=== PATIENT | male | born 1950 | race Caucasian/White ===

== ENCOUNTER 2024-02-02 15:04 | Outpatient (REF) | payer MEDICARE, SELFPAY ==
[2024-02-02 21:44] LABS: ALT 12 U/L (16-63); AST 11 U/L (15-37); Albumin 3.8 g/dL (3.4-5.0); Alkaline Phosphatase 106 U/L (46-116); Anion Gap 8.1 mmol/L (3-11); BUN 14 mg/dL (7-18); Bilirubin, Total 1.13 mg/dL (0.2-1.0); CO2 29.9 mmol/L (21.0-32.0); CREATININE 0.9 mg/dL (0.70-1.30); Calcium 9.1 mg/dL (8.5-10.1); Calculated LDL 20 mg/dL (<100); Chloride 108 mmol/L (98-107); Cholesterol 76 mg/dL (<200); Estimated GFR 90.18 (mL/min/1.73m2); Glucose 106 mg/dL (74-106); HDL Cholesterol 42 mg/dL (40-60); Potassium 4.5 mmol/L (3.5-5.1); Sodium 146 mmol/L (136-145); Total Protein 6.8 g/dL (6.4-8.2); Triglyceride 73 mg/dL (<150); Vitamin B12 223 pg/mL (193-986)
== END 2024-02-02 15:05 | disposition home or self-care (01) ==
LOC: NCHCN 15:04
PROVIDERS: PCP Nurse Practitioner Family; Visit Provider Nurse Practitioner Family
DX: E53.8 Deficiency of other specified B group vitamins (principal); I25.10 Atherosclerotic heart disease of native coronary artery without angina pectoris
CPT/HCPCS: 80053; 80061; 82607

== ENCOUNTER 2024-04-26 14:34 | Observation (INO) | payer MEDICARE, SELFPAY ==
[2024-04-26] VITALS (39 sets, daily range): BP systolic 114–193; BP diastolic 69–154; PULSE 54–264; RESP 15–36; TEMP 36.5–36.6; O2SAT 76–99
--- NOTE | 2024-04-26 14:45 | RT.EKG_ITS ---
APPROVED REPORT Exam: Resting ECG Reason for Exam: weakness/AMS Patient Location: E HR:57 bpm ECG Measurements Heart Rate 57 AXIS NV 194 P 54 QRSd 96 QRS 32 QT 413 T 73 QTc 402 Conclusion Sinus bradycardia...rate< 60 Normal axis/intervals No acute ST changes
--- NOTE | 2024-04-26 14:45 | DI.RAD_ITS ---
Exam(s) XR CHEST 2V PA LATERAL EXAM: XR CHEST 2V PA LATERAL CLINICAL HISTORY: weakness/AMS TECHNIQUE: 2D digital imaging was performed of the chest. Two images were obtained. PA and lateral views were obtained. COMPARISON: No exams were available for comparison FINDINGS: MEDIASTINUM: Normal. HEART: Normal. PULMONARY VASCULATURE: Normal. LUNGS: Clear. PLEURAL SPACE: No pleural effusion or pneumothorax. BONE:Within normal limits for the patient's age. OTHER FINDINGS:Normal. IMPRESSION: No acute pulmonary findings. DATA REPOSITORY: RADIATION DOSE DELIVERED:
--- NOTE | 2024-04-26 14:46 | W.ED.GENAD ---
Discharge Plan Disposition Patient Disposition: Admit to [facility] Condition: Stable Discharge Details Clinical Impression: Altered mental status, unspecified, Generalized weakness, Abnormal abdominal CT scan, Right renal mass Primary Care Provider: Breonna Sena ED Provider: Buzz Barrera Mendon Malachi and Milton Ya'hussein Prescriptions: No Action carbidopa-levodopa 25-100 mg tablet 2 tab PO TID amantadine HCl 100 mg capsule 100 mg PO BID atorvastatin 80 mg tablet 80 mg PO DAILY aspirin [Adult Low Dose Aspirin] 81 mg tablet,delayed release (DR/EC) 81 mg PO DAILY donepezil 10 mg tablet 10 mg PO DAILY tamsulosin 0.4 mg capsule 0.4 mg PO DAILY polyethylene glycol 3350 [Miralax] 17 gram/dose powder 8.5 g PO .QOD HPI General Mode of arrival: wheelchair. Date/Time Provider Initiated Documentation: 04/26/24 14:46. Limitations to Documentation: no limitations. Information obtained by: patient, family, RN notes reviewed and old records reviewed. HPI Narrative: Patient brought in from [facility] for evaluation of some increased confusion and weakness. He does have history of memory problems and Parkinson's disease. Over the last 1 to 2 days he has become increasingly weak and confused rather acutely. He does have a history of falls. There is been no report of fever, cough, chest pain, abdominal pain, vomiting. Patient himself denies any pain at this time. Related Data Home Medications ?Medication ?Instructions ?Recorded ?Confirmed amantadine HCl 100 mg capsule 100 mg PO BID 01/06/24 04/26/24 aspirin 81 mg tablet,delayed 81 mg PO DAILY 01/06/24 04/26/24 release (Adult Low Dose Aspirin) atorvastatin 80 mg tablet 80 mg PO DAILY 01/06/24 04/26/24 carbidopa 25 mg-levodopa 100 mg 2 tab PO TID 01/06/24 04/26/24 tablet donepezil 10 mg tablet 10 mg PO DAILY 01/06/24 04/26/24 tamsulosin 0.4 mg capsule 0.4 mg PO DAILY 01/06/24 04/26/24 polyethylene glycol 3350 17 8.5 g PO .QOD 04/12/24 04/26/24 gram/dose oral powder (Miralax) Allergies Allergy/AdvReac Type Severity Reaction Status Date / Time No Known Allergies Allergy Verified 04/26/24 14:46 General Stated Complaint: AMS/LOC IRENE: 3 Review of Systems Narrative: Per HPI Exam Narrative Exam Narrative: Const: Elderly male in NAD. VS per triage. HEENT: NC/AT. Normal facial exam. Neck: Supple. Trachea midline. Lungs: Normal respiratory effort. Lungs are clear. Cor: RRR without murmur. Good radial pulses. GI: Soft/ND/NT. Neuro: Awake and alert with some mild confusion. Cranial nerves II - XII grossly intact. No gross motor or sensory deficit. BUE tremor. Ext: No C/C/E. Course Vital Signs Vital signs: Vital Signs Temperature 97.7 F 04/26/24 14:41 Pulse 62 04/26/24 14:41 Respiratory Rate 16 04/26/24 14:41 Blood Pressure 155/84 H 04/26/24 14:41 Pulse Oximetry 97 04/26/24 14:41 Temperature 97.7 F 04/26/24 14:41 Temperature Source Tympanic 04/26/24 14:41 Pulse 62 04/26/24 14:41 Respiratory Rate 16 04/26/24 14:41 Blood Pressure 155/84 H 04/26/24 14:41 Pulse Oximetry 97 04/26/24 14:41 Oxygen Delivery Method Room Air 04/26/24 14:41 Oxygen Flow Rate 0 04/26/24 14:41 Pain Level 0 04/26/24 14:41 Medical Decision Making Patient presenting to ED from [facility] for evaluation of increased confusion and weakness over the last couple of days. He does have cognitive problems as well as Parkinson's. He currently denies any pain or problems. Family who is here with him reports a noticeable increase in confusion and weakness acutely. No report of any other real symptoms other than maybe runny nose. His vital signs look good. His exam is unremarkable and neurologically he is nonfocal. Does appear mildly confused to me. Given history of frequent falls will obtain CT head. Will proceed with metabolic infectious workup as well including Fluvid, chest x-ray, urinalysis, laboratory studies, EKG. 16:45 - Patient's workup has been unrevealing so far. White count and hemoglobin are normal. Chemistries unremarkable, bicarb only slightly elevated at 33. Kidney function is normal. Total bilirubin is 1.8 up from a previous of 1.3 but other LFTs are normal. His troponin is normal. Nasal swab is negative. Urinalysis negative for infection. CT head per radiology with no acute changes and no bleed. Chest x-ray per my read as well as radiology negative for acute process. Given the relatively acute change in mental status and weakness with no other findings other than increasing bilirubin and report of decreased appetite and food intake will plan CT of abdomen pelvis. If negative will plan discharge back to [place] and to follow-up with PCP and/or palliative care. 18:30 - CT of the abdomen with findings as below. I have discussed these findings with patient and family. Given acute change in mental status and weakness and that [facility] is assisted living, I have concern regarding discharge back. Discussed consideration for observation admission with family who are in agreement. Discussed ED visit and findings with hospitalist, Dr. Good. Agree with observation admission for abdominal ultrasound and potentially abdominal MRI tomorrow. Medical Records Medical records reviewed: Yes I reviewed the patient's medical records. Medical records narrative: palliative care notes Imaging Data Radiologic Study: Attestation: I personally reviewed and interpreted this imaging study as follows: Imaging: X-Ray My impression: CXR with no acute process Radiologic Study #2: Imaging: CT Scan (Head) Radiologist's impression: IMPRESSION: No definite acute intracranial process. If if there is continued clinical concern, an MRI of the brain should be obtained for further evaluation Radiologic Study #3: Imaging: CT Scan (abd/pelivs) Radiologist's impression: IMPRESSION: 1. Cholelithiasis. No biliary ductal dilatation. There may be mild pericholecystic fluid. Gallbladder ultrasound may be obtained for further evaluation. 2. 6.8 x 6.5 x 6.6 cm complex right renal mass suspicious for renal neoplasm such as a renal cell carcinoma. 3. Hypodense rounded nodular area adjacent to the stomach and left adrenal gland. This may arise from the adrenal gland and represent lesion such as an adenoma. This also may arise from the stomach and represent a diverticulum. This can be further evaluated with an MRI of the abdomen. 4. Question of mild wall thickening seen in loops of small bowel in the left abdomen. This may be due to underdistention, enteritis or possible neoplastic process. 5. Enlarged prostate gland. Lab Data Lab results reviewed: Yes I reviewed the patient's lab results. Lab results narrative: see MDM ECG Data Attestation: I personally reviewed and interpreted this ECG (s) as follows: Prior ECG tracings: not available for review Interpretation: see MDM/EKG PFS All Active Problems (Updated 04/26/24 @ 18:30 by Buzz Barrera MD) Right renal mass (Acute) Abnormal abdominal CT scan (Acute) Generalized weakness (Acute) Altered mental status, unspecified (Acute) Falls frequently (Acute) Full code status (Acute) Palliative care patient (Acute) ACP (advance care planning) (Acute) Medical History Constipation Memory deficit Hypertension Parkinsons disease Cardiomyopathy, ischemic ASCVD (arteriosclerotic cardiovascular disease) Social History Smoking/Tobacco Use Status: Never Smoking risk assessment performed?: Yes Alcohol Intake: never Drug use: Never Do you feel safe at home: Yes Do you feel safe in your relationship?: Yes
[2024-04-26 15:03] LABS: Abs Immature Grans 0.03 10^3/uL (0.0-0.06); Absolute Basophil Count 0.02 10^3/uL (0.0-0.2); Absolute Eosinophil Count 0.18 10^3/uL (0.0-0.7); Absolute Monocyte Count 0.53 10^3/uL (0.1-0.8); Absolute Neutrophil Count 4.92 10^3/uL (1.2-6.7); Basophils % 0.3 %; Eosinophils % 2.7 %; HCT 48.8 % (40.0-50.0); Immature Grans % 0.4 %; Lymphocytes % 16.2 %; MCH 29.7 pg (27.0-33.0); MCHC 32.8 % (32.0-36.0); MCV 91 fL (80-95); MPV 10.3 fL (8.0-11.0); Monocytes % 7.8 %; Neutrophils % 72.6 %; Platelet Count 153 10^3/uL (130-400); RBC 5.39 10^6/uL (4.36-5.78); RDW 14.9 % (11.8-14.1); RDW-SD 49.7 fL; WBC 6.78 10^3/uL (4.4-10.8)
[2024-04-26 15:26] LABS: ALT 8 U/L (16-63); AST 7 U/L (15-37); Albumin 3.9 g/dL (3.4-5.0); Alkaline Phosphatase 112 U/L (46-116); Anion Gap 3.9 mmol/L (3-11); BUN 15 mg/dL (7-18); Bilirubin, Total 1.78 mg/dL (0.2-1.0); CO2 33.1 mmol/L (21.0-32.0); Chloride 107 mmol/L (98-107); Estimated GFR 79.47 (mL/min/1.73m2); Glucose 99 mg/dL (74-106); Magnesium 2.4 mg/dL (1.8-2.4); Potassium 4.1 mmol/L (3.5-5.1); Sodium 144 mmol/L (136-145); Troponin I 8 ng/L (<or=76)
[2024-04-26 15:46] LABS: Bilirubin Negative (Negative); Blood Negative (Negative); Clarity Clear (Clear); Glucose Negative (Negative); Ketones 15 mg/dL (Negative); Leukocyte Esterase Negative (Negative); Nitrite Negative (Negative); Specific Gravity >= 1.030 (1.005-1.025); pH 6.5 (5-8)
--- NOTE | 2024-04-26 16:25 | DI.CT_ITS ---
Exam(s) CT HEAD WO EXAM: CT HEAD WO CLINICAL HISTORY: AMS. TECHNIQUE: Imaging Protocol: Axial computed tomography images with coronal and sagittal reformatted images were created and reviewed COMPARISON: No exams were available for comparison FINDINGS: Ventricles and Extra axial spaces: Normal in size and morphology for the patient's age. Hemorrhage: None. Cerebral parenchyma: No mass effect is identified. No evidence of an acute territorial infarct. The re are subtle areas of decreased attenuation in the white matter which may reflect small vessel ische mora disease. Midline shift: None. Brainstem/Cerebellum: Normal. Calvarium: Normal. Visualized Paranasal sinuses/Mastoids: Clear. Soft Tissues: Unremarkable. IMPRESSION: No definite acute intracranial process. If if there is continued clinical concern, an MRI of the bra in should be obtained for further evaluation. RADIATION DOSE DELIVERED: 901.47mGy.cm Total DLP DATA REPOSITORY: All CT scans at this facility are submitted to the National Radiology Data Registry (NRDR) Dose Index Registry (DIR) with the [employer] (ACR). RADIATION OPTIMIZATION: All CT scans at this facility use at least one of these dose optimization te chniques: automated exposure control; mA and/or kV adjustment per patient size (includes targeted exa ms where dose is matched to clinical indication); or iterative reconstruction.
[2024-04-26 16:27] LABS: Influenza A PCR Negative (Negative); Influenza B PCR Negative (Negative); RSV PCR Negative (Negative)
[2024-04-26 16:28] LABS: COVID-19 PCR Negative (Negative); Source NASOPHARYNX
--- NOTE | 2024-04-26 16:45 | DI.CT_ITS ---
Exam(s) CT ABDOMEN PELVIS W EXAM: CT ABDOMEN PELVIS W CLINICAL HISTORY: AMS with elevated bilirubin, decreased appetite TECHNIQUE: Imaging Protocol: Axial computed tomography images with coronal and sagittal reformatted images were created and reviewed. CONTRAST MATERIAL: Intravenous: Omnipaque 350 Contrast volume:75 mL Oral: No COMPARISON: No exams were available for comparison FINDINGS: ABDOMEN: Lung Bases: No acute abnormality. Liver: Normal density. No measurable mass. Portal, Superior Mesenteric, and Splenic Veins: Unremarkable. Gallbladder and Biliary Tract: There is a gallstone present. (Series 10, image 60). No biliary duct al dilatation. There is a question of mild fluid around the gallbladder. Pancreas: Normal density, no abnormal calcifications or inflammatory process. Spleen: Normal. Adrenals: There is a left adrenal nodule. It measures 1.6 cm. Kidneys: Normal size, contour and axis. No radiodense stones or obstructive uropathy. There are simpl e cysts seen in the left kidney. No follow-up is recommended. There is a heterogeneously enhancing mass in the inferior pole of the right kidney measuring 6.8 x 6.5 x 6.4 cm. The findings are most co ncerning for a primary renal neoplasm such as a renal cell carcinoma. Abdominal Aorta: Abdominal portion non-dilated. Atherosclerotic calcification is present. There is e ctasia of the proximal right internal iliac artery. Bowel: There is colonic diverticulosis without evidence of acute diverticulitis. The stomach is inco mpletely distended limiting evaluation. There is a short section of wall thickening in loops of smal l bowel in the left abdomen (series 10 image 99). There is no evidence of bowel obstruction. No oth er findings of bowel wall thickening are seen. Peritoneal Cavity: No ascites, collection or mesenteric inflammatory response. No free air. Lymph Nodes: Within normal limits. Bones: Within normal limits for the patient's age. Soft Tissues: Unremarkable. PELVIS: Bladder: Symmetric distention, no gross wall thickening. Reproductive Organs: There is enlarged prostate gland. Lymph Nodes: Within normal limits. Bones: Within normal limits for the patient's age. IMPRESSION: 1. Cholelithiasis. No biliary ductal dilatation. There may be mild pericholecystic fluid. Gallblad edilberto ultrasound may be obtained for further evaluation. 2. 6.8 x 6.5 x 6.6 cm complex right renal mass suspicious for renal neoplasm such as a renal cell car cinoma. 3. Hypodense rounded nodular area adjacent to the stomach and left adrenal gland. This may arise fro m the adrenal gland and represent lesion such as an adenoma. This also may arise from the stomach an d represent a diverticulum. This can be further evaluated with an MRI of the abdomen. 4. Question of mild wall thickening seen in loops of small bowel in the left abdomen. This may be du e to underdistention, enteritis or possible neoplastic process. 5. Enlarged prostate gland. RADIATION DOSE DELIVERED: 392.1mGy.cm Total DLP DATA REPOSITORY: All CT scans at this facility are submitted to the National Radiology Data Registry (NRDR) Dose Index Registry (DIR) with the [employer] (ACR). RADIATION OPTIMIZATION: All CT scans at this facility use at least one of these dose optimization te chniques: automated exposure control; mA and/or kV adjustment per patient size (includes targeted exa ms where dose is matched to clinical indication); or iterative reconstruction.
[2024-04-26] MEDS: Normal Saline - Diluent 50 ML VIAL IJ (17:23)
[2024-04-26] MEDS: Omnipaque 350 MG/ML 100 ML BTL IJ (17:23)
--- NOTE | 2024-04-26 19:44 | HPE_ITS ---
Date of service: 04/26/24 Time of Service: 19:44 Assessment and Plan Assessment and plan (1) Altered mental status, unspecified: Status: Acute Assessment and plan: Acute mental status changes evolving over the past 2 days with an unclear etiology. His mental status makes a full history assessment difficult. Clues on evaluation for infection in ED including mildly elevated/uptrending hyperbilirubinemia and cholelithiasis with possible pericholecystic fluid, I agree he deserves observation with repeat bili and abdominal ultrasound to further evaluate this. May also be non specific infection that has not declared itself Exam and CT not suggestive of cerebrovascular cause. Will observe clinically Get orthostatic BPs and PT to address the lighteadness and falls. Amantadine could makes these symptoms worse but it is not new per the record. (2) Right renal mass: Status: Acute Assessment and plan: This is new, concerning for RCC. Will need biopsy as outpatient. MRI recommended for adrenal mass will also help characterize this better. (3) Left adrenal mass: Status: Acute Assessment and plan: Adrenal vs stomach. It is unclear if this is related to acute presentation, but given uncertaintly will get the MRI as recommended. (4) ASCVD (arteriosclerotic cardiovascular disease): Assessment and plan: Continue aspirin and high intensity statin. He denies symptoms, EKG/trop reassuring (5) B12 deficiency: Assessment and plan: Was low normal in January, will repeat, though I doubt related to acute MS changes. (6) Parkinsons disease: Assessment and plan: Given history of progression and associated dementia and autonomic dysfuntion, this could be multisystem atropy or similar. He has f/u with neurology. For now will continue his outpatient medications for parkinsonism and cognitive impairment. (7) Constipation: Assessment and plan: Continue regular QOD polyethylene glycol. (8) BPH with obstruction/lower urinary tract symptoms: Assessment and plan: No signs of obstruction on CT. Continue tamsulosin. (9) DVT prophylaxis: Status: Acute Assessment and plan: enoxaparin History of Present Illness History of Present Illness Chief Complaint: confusion, weakness Narrative: 73 yo M with Parkinsons with associated cognitive impairment and autonomic dysfunction, CAD, and BPH who presented after multiple minor falls and some increased confusion for the past 2 days at [facility]. He states he has been feeling more dizzy with standing and weak. He states has fallen 4-5 times while up with his walker, which is more than usual. He denies getting hurt or hitting his head when he has fallen. He denies focal weakness or numbness or vertigo associated with these falls. He denies any pain including headache, chest pain, or abdominal pain. He has not had any changes to bowel or bladder function. He states he has been taking his medication regularly and is not aware of any recent changes (none documented in PCP record). Per caregiver at [facility], he has been more confused than normal, which is an acute change management lead the past 2 days. Note from PCP states Aneta called earlier on the day of admission decribing confusion and weakness x 2 days. He couldn't do much with. He couldn't hold his fork normally to eat last night and didn't eat. Not able to follow commands, which is abnormal. They described him slipping out of chair but no overt falls and no head trauma. No fever or other complaints. Review of Systems All systems reviewed & are unremarkable except as noted in HPI and below Constitutional Constitutional: Denies chills, Reports frequent falls and Reports poor appetite Eyes Eyes: Denies change in vision ENT Ears, Nose, Mouth, and Throat: Reports as per HPI, Denies nasal congestion, Denies nasal discharge and Denies sore throat Cardiovascular Cardiovascular: Denies dyspnea Respiratory Respiratory: Denies hemoptysis, Reports excessive phlegm production (not much cough but he does bring up phlegm.) and Denies dyspnea Comments: COPD on PCP records, but no inhaler use Gastrointestinal Gastrointestinal: Denies melena, Denies hematochezia, Reports constipation (takes miralax, last BM 2-3 days ago), Denies loose stools and Denies nausea Comments: no pale/leigh stool or other color change Genitourinary Genitourinary: Denies hematuria and Reports urinary incontinence (per caregivers) Neurologic Neurologic: Reports as per HPI, Denies abnormal speech, Reports frequent falls, Denies convulsions and Reports tremor(s) (chronic) Psychiatric Psychiatric: Denies mood swings [facility] All Active Problems (Updated 04/26/24 @ 19:56 by Rajendra Mehta) DVT prophylaxis (Acute) Left adrenal mass (Acute) Right renal mass (Acute) Abnormal abdominal CT scan (Acute) Generalized weakness (Acute) Altered mental status, unspecified (Acute) Falls frequently (Acute) Full code status (Acute) Palliative care patient (Acute) ACP (advance care planning) (Acute) Medical History (Updated 04/26/24 @ 19:56 by Rajendra Mehta) BPH with obstruction/lower urinary tract symptoms B12 deficiency Constipation Memory deficit Hypertension Parkinsons disease Cardiomyopathy, ischemic ASCVD (arteriosclerotic cardiovascular disease) Surgical History (Updated 04/26/24 @ 19:49 by Rajendra Mehta) S/P vasectomy Social History (Updated 04/26/24 @ 19:52 by Rajendra Mehta) Smoking/Tobacco Use Status: Never Smoking risk assessment performed?: Yes Alcohol Intake: never Drug use: Never Do you feel safe at home: Yes Do you feel safe in your relationship?: Yes Additional Social history: 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 Now lives at [facility], but ex- [place] supportive/DPOA. Daughter in [facility], Daughter [facility]. Meds Allergies and Home Medications Allergies Allergy/AdvReac Type Severity Reaction Status Date / Time No Known Allergies Allergy Verified 04/26/24 14:46 Home Medications ?Medication ?Instructions ?Recorded ?Confirmed ?Type amantadine HCl 100 mg capsule 100 mg PO BID 01/06/24 04/26/24 History aspirin 81 mg tablet,delayed 81 mg PO DAILY 01/06/24 04/26/24 History release (Adult Low Dose Aspirin) atorvastatin 80 mg tablet 80 mg PO DAILY 01/06/24 04/26/24 History carbidopa 25 mg-levodopa 100 mg 2 tab PO TID 01/06/24 04/26/24 History tablet donepezil 10 mg tablet 10 mg PO DAILY 01/06/24 04/26/24 History tamsulosin 0.4 mg capsule 0.4 mg PO DAILY 01/06/24 04/26/24 History polyethylene glycol 3350 17 8.5 g PO .QOD 04/12/24 04/26/24 History gram/dose oral powder (Miralax) Exam Narrative Exam Narrative: GEN: Alert and oriented to self and month/year, not to place ([place]). pleasant and cooperative, he does follow commands with exam, gives very vague history. No acute distress at rest. HEENT: Head atraumatic. Conjunctiva clear, no icterus. PEERL, EOMI. no rhinorrhea. MMM, OP benign. Neck is supple with no masses or lymphadenopathy, trachea midline LUNGS: CTAB with normal effort CV: RRR with no murmurs, gallops, or rubs. ABD: active bowel sounds, soft, nontender and nondistended. No masses. Negative murphies EXT: no cyanosis, clubbing, or edema MSK: No joint redness or swelling NEURO: CN 2-12 grossly intact. 5/5 symmetric strength of 4 extremities, nl sensation to light touch. severe resting tremor in arms and legs. Symmetric reflexes. Normal speech and coordination. SKIN: No open wounds, few pustules and macular redness, papules on face, chest (rosacea appearing) PSYCH: normal mood and affect. No obvious hallucinations Results Imaging Chest x-ray: report reviewed and image reviewed Abdomen CT scan report/results: report reviewed (see below) CT scan - pelvis: report reviewed EKG: report reviewed and image reviewed (Sinus armand 57, nl axis, intervals. No acute ischemic changes.) Imaging Studies: CT Abd/pelvis: 1. Cholelithiasis. No biliary ductal dilatation. There may be mild pericholecystic fluid. Gallbladder ultrasound may be obtained for further evaluation. 2. 6.8 x 6.5 x 6.6 cm complex right renal mass suspicious for renal neoplasm such as a renal cell carcinoma. 3. Hypodense rounded nodular area adjacent to the stomach and left adrenal gland. This may arise from the adrenal gland and represent lesion such as an adenoma. This also may arise from the stomach and represent a diverticulum. This can be further evaluated with an MRI of the abdomen. 4. Question of mild wall thickening seen in loops of small bowel in the left abdomen. This may be due to underdistention, enteritis or possible neoplastic process. 5. Enlarged prostate gland. CT head w/o: No definite acute intracranial process. If if there is continued clinical concern, an MRI of the brain should be obtained for further evaluation. Labs 04/26/24 14:55 04/26/24 14:55 Labs: Laboratory Results - last 24 hr 04/26/24 04/26/24 04/26/24 14:55 15:35 15:44 WBC 6.78 RBC 5.39 Hgb 16.0 Hct 48.8 MCV 91 MCH 29.7 MCHC 32.8 RDW 14.9 H Plt Count 153 MPV 10.3 Immature Gran % 0.4 Neutrophils % 72.6 Lymphocytes % 16.2 Monocytes % 7.8 Eosinophils % 2.7 Basophils % 0.3 Nucleated RBC % 0.0 Absolute Neutrophils 4.92 Absolute Lymphocytes 1.10 L Absolute Monocytes 0.53 Absolute Eosinophils 0.18 Absolute Basophils 0.02 Sodium 144 Potassium 4.1 Chloride 107 Carbon Dioxide 33.1 H Anion Gap 3.9 BUN 15 Creatinine 1.0 Est GFR (CKD-EPI 2020) 79.47 Glucose 99 Calcium 9.0 Magnesium 2.4 Total Bilirubin 1.78 H AST 7 L ALT 8 L Alkaline Phosphatase 112 Troponin I 8 Total Protein 7.0 Albumin 3.9 Urine Color Yellow Urine Clarity Clear Urine pH 6.5 Ur Specific Mcallister >= 1.030 H Urine Protein Negative Urine Ketones 15 H Urine Blood Negative Urine Nitrite Negative Urine Bilirubin Negative Urine Urobilinogen 2.0 H Ur Leukocyte Esterase Negative Urine Glucose Negative COVID-19 Source NASOPHARYNX SARS-CoV-2 (PCR) Negative Influenza Type A (PCR) Negative Influenza Type B (PCR) Negative RSV (PCR) Negative Last Vital Signs Temp 36.5 C 04/26/24 14:41 Pulse 64 04/26/24 15:32 Resp 25 H 04/26/24 15:32 BP 154/96 H 04/26/24 15:30 Pulse Ox 94 04/26/24 15:32 Time Spent Time spent with Patient: >75 minutes Time was spent: preparing to see the patient(eg.review tests), obtaining and/or reviewing separately otained hiistory, ordering medications,tests, procedures, referring, communicating with other health pharmacy customer care specialist, indepentently interpreting results, counseling the patient and care coordination
[2024-04-26] MEDS: Carbidopa 25/Levodopa 100 TAB PO (22:47)
[2024-04-26] MEDS: Normal Saline Flush 10 ML SYR IVP (22:53)
[2024-04-27 03:21] VITALS: BP 131/79; PULSE 60; RESP 18; TEMP 36.4; O2SAT 98
--- NOTE | 2024-04-27 06:51 | W.PC.ACHO ---
Registration Status: Primary Language: Preferred Language: ED Information & Data Chief Complaint AMS/LOC 04/26/24 14:46 Triage Note yesterday pt not acting 04/26/24 14:41 himself, increased weakness, sweaty, nose running, incontinence, sada concerned for UTI. Medical / Surgical History (Last Updated 04/26/24 @ 19:48 by Rajendra Mehta) BPH with obstruction/lower urinary tract symptoms B12 deficiency Constipation Memory deficit Hypertension Parkinsons disease Cardiomyopathy, ischemic ASCVD (arteriosclerotic cardiovascular disease) (Last Updated 04/26/24 @ 19:49 by Rajendra Mehta) S/P vasectomy Most Recent Vital Signs Temperature 36.4 C L 04/27/24 03:21 Temperature Source Tympanic 04/27/24 03:21 Pulse 60 04/27/24 03:21 Pulse Rhythm Irregular 04/26/24 22:21 Pulse 65 04/26/24 18:20 Respiratory Rate 18 04/27/24 03:21 Respiratory Effort Normal, Non-Labored 04/26/24 22:21 Respiratory Depth Normal 04/26/24 22:21 Respiratory Pattern Normal 04/26/24 22:21 Blood Pressure 131/79 04/27/24 03:21 Blood Pressure Mean 101 04/26/24 20:16 Pulse Oximetry 98 04/27/24 03:21 Oxygen Delivery Method Room Air 04/27/24 03:21 Oxygen Flow Rate 0 04/27/24 03:21 Pain Level 0 04/27/24 03:21 Allergies No Known Allergies Allergy (Verified 04/26/24 14:46) Active Medications Generic Name Dose Route Start Last Admin Trade Name Freq PRN Reason Stop Dose Admin Amantadine HCl 100 mg 04/26/24 20:00 04/26/24 23:57 Amantadine 100 Mg Cap PO 100 mg BID MALICK Administration Carbidopa/Levodopa 2 tab 04/26/24 20:00 04/26/24 22:47 Carbidopa 25/Levodopa 100 Tab PO 2 tab TID MALICK Administration Iohexol 100 ml 04/26/24 17:30 04/26/24 17:23 Omnipaque 350 Mg/Ml 100 Ml Btl IJ 05/26/24 23:59 100 ml DIRECTED MAILCK Administration Sodium Chloride 0 ml 04/26/24 20:00 04/26/24 22:53 Normal Saline Flush 10 Ml Syr IVP 10 ml BID MALICK Administration Sodium Chloride 50 ml 04/26/24 17:30 04/26/24 17:23 Normal Saline - Diluent 50 Ml Vial IJ 50 ml .FOR DI USE MALICK Administration IV IV Catheter Type [Right Saline Lock Antecubital] IV Catheter Gauge [Right 18 Antecubital] Diagnostics 04/27/24 04/26/24 04/26/24 Range/Units 05:35 15:44 15:35 WBC Pending (4.4-10.8) 10^3/uL RBC Pending (4.36-5.78) 10^6/uL Hgb Pending (13.5-17.5) g/dL Hct Pending (40.0-50.0) % MCV Pending (80-95) fL MCH Pending (27.0-33.0) pg MCHC Pending (32.0-36.0) % RDW Pending (11.8-14.1) % Plt Count Pending (130-400) 10^3/uL MPV Pending (8.0-11.0) fL Immature Gran % Pending % Neutrophils % Pending % Lymphocytes % Pending % Monocytes % Pending % Eosinophils % Pending % Basophils % Pending % Nucleated RBC % (0.0-0.3) % Absolute Neutrophils Pending (1.2-6.7) 10^3/uL Absolute Lymphocytes Pending (1.2-3.4) 10^3/uL Absolute Monocytes Pending (0.1-0.8) 10^3/uL Absolute Eosinophils Pending (0.0-0.7) 10^3/uL Absolute Basophils Pending (0.0-0.2) 10^3/uL Sodium (136-145) mmol/L Potassium (3.5-5.1) mmol/L Chloride (98-107) mmol/L Carbon Dioxide (21.0-32.0) mmol/L Anion Gap (3-11) mmol/L BUN (7-18) mg/dL Creatinine (0.70-1.30) mg/dL Est GFR (CKD-EPI 2020) (mL/min/1.73m2) Glucose (74-106) mg/dL Calcium (8.5-10.1) mg/dL Magnesium Pending (1.8-2.4) mg/dL Total Bilirubin Pending (0.2-1.0) mg/dL Conjugated Bilirubin Pending AST Pending (15-37) U/L ALT Pending (16-63) U/L Alkaline Phosphatase Pending (46-116) U/L Troponin I (<or=76) ng/L Total Protein Pending (6.4-8.2) g/dL Albumin Pending (3.4-5.0) g/dL Vitamin B12 Pending Urine Color Yellow (Yellow) Urine Clarity Clear (Clear) Urine pH 6.5 (5-8) Ur Specific [place] >= 1.030 H (1.005-1.025) Urine Protein Negative (Neg-Trace) mg/dL Urine Ketones 15 H (Negative) mg/dL Urine Blood Negative (Negative) Urine Nitrite Negative (Negative) Urine Bilirubin Negative (Negative) Urine Urobilinogen 2.0 H (Up to 0.2) mg/dL Ur Leukocyte Esterase Negative (Negative) Urine Glucose Negative (Negative) mg/dL COVID-19 Source NASOPHARYNX SARS-CoV-2 (PCR) Negative (Negative) Influenza Type A (PCR) Negative (Negative) Influenza Type B (PCR) Negative (Negative) RSV (PCR) Negative (Negative) 04/26/24 Range/Units 14:55 WBC 6.78 (4.4-10.8) 10^3/uL RBC 5.39 (4.36-5.78) 10^6/uL Hgb 16.0 (13.5-17.5) g/dL Hct 48.8 (40.0-50.0) % MCV 91 (80-95) fL MCH 29.7 (27.0-33.0) pg MCHC 32.8 (32.0-36.0) % RDW 14.9 H (11.8-14.1) % Plt Count 153 (130-400) 10^3/uL MPV 10.3 (8.0-11.0) fL Immature Gran % 0.4 % Neutrophils % 72.6 % Lymphocytes % 16.2 % Monocytes % 7.8 % Eosinophils % 2.7 % Basophils % 0.3 % Nucleated RBC % 0.0 (0.0-0.3) % Absolute Neutrophils 4.92 (1.2-6.7) 10^3/uL Absolute Lymphocytes 1.10 L (1.2-3.4) 10^3/uL Absolute Monocytes 0.53 (0.1-0.8) 10^3/uL Absolute Eosinophils 0.18 (0.0-0.7) 10^3/uL Absolute Basophils 0.02 (0.0-0.2) 10^3/uL Sodium 144 (136-145) mmol/L Potassium 4.1 (3.5-5.1) mmol/L Chloride 107 (98-107) mmol/L Carbon Dioxide 33.1 H (21.0-32.0) mmol/L Anion Gap 3.9 (3-11) mmol/L BUN 15 (7-18) mg/dL Creatinine 1.0 (0.70-1.30) mg/dL Est GFR (CKD-EPI 2020) 79.47 (mL/min/1.73m2) Glucose 99 (74-106) mg/dL Calcium 9.0 (8.5-10.1) mg/dL Magnesium 2.4 (1.8-2.4) mg/dL Total Bilirubin 1.78 H (0.2-1.0) mg/dL Conjugated Bilirubin AST 7 L (15-37) U/L ALT 8 L (16-63) U/L Alkaline Phosphatase 112 (46-116) U/L Troponin I 8 (<or=76) ng/L Total Protein 7.0 (6.4-8.2) g/dL Albumin 3.9 (3.4-5.0) g/dL Vitamin B12 Urine Color (Yellow) Urine Clarity (Clear) Urine pH (5-8) Ur Specific [place] (1.005-1.025) Urine Protein (Neg-Trace) mg/dL Urine Ketones (Negative) mg/dL Urine Blood (Negative) Urine Nitrite (Negative) Urine Bilirubin (Negative) Urine Urobilinogen (Up to 0.2) mg/dL Ur Leukocyte Esterase (Negative) Urine Glucose (Negative) mg/dL COVID-19 Source SARS-CoV-2 (PCR) (Negative) Influenza Type A (PCR) (Negative) Influenza Type B (PCR) (Negative) RSV (PCR) (Negative) Intake and Output - 24 Hour Total 04/26/24 14:34 thru 04/27/24 03:21 Intake Total 10 Output Total 120 Balance -110 Weight 73.482 kg Intake: IV 10 Output: Urine 120 Other: Urine Color Yellow Urine Appearance Clear Comment tried the commode but was incontinent Falls Risk Assessment History of Falls Previous History 04/26/24 22:21 Contributing Factors Confusion 04/26/24 22:21 Ambulatory Aids Uses ambulatory device 04/26/24 22:21 Tubes/Lines With any additional score 04/26/24 22:21 Gait Evaluation No gait disturbance 04/26/24 22:21 Cognition Cognitive impairment 04/26/24 22:21 Fall Total Score 68 04/26/24 22:21 Level of Risk High Risk 04/26/24 22:21 Problems (Last Updated 04/26/24 @ 19:48 by Rajendra Mehta) DVT prophylaxis (Acute) Left adrenal mass (Acute) Right renal mass (Acute) Altered mental status, unspecified (Acute) v v v v v v v v v Sending and/or Receiving Nurses: Please use comment section below to note any information pertinent to the patient hand-off not included above. Information / Comments: Report received from: received report from Fede Genao, [facility] was brought in w/ c/o increased weakness, AMS, questionable UTI. nothing remarkable was discoverable after labs and diagnostics done in the ER. Patient has underlying impaired cognition and parkinsons. patient has a fairly significant baseline tremor r/t to his parkinsons. VSS.
--- NOTE | 2024-04-27 07:00 | DI.US_ITS ---
Exam(s) US ABDOMEN EXAM: US ABDOMEN CLINICAL HISTORY: AMS, weak, elevated bili and fluid around GB on CT TECHNIQUE: Ultrasound abdomen performed using standard protocol. COMPARISON: CT CT ABDOMEN PELVIS W from 04/26/2024 FINDINGS: The exam is limited by bowel gas. LIVER: Somewhat difficult to visualize due to bowel gas and assess the of the skull scanning through the ribs. Normal size and echogenicity. No focal liver lesions are seen. GALLBLADDER: No evidence of cholelithiasis. Borderline wall thickening 3 millimeters. No pericholecy stic fluid identified. The gallbladder is not abnormally distended. KIRAN'S SIGN: Negative. BILIARY SYSTEM: No intrahepatic or extrahepatic biliary ductal dilation. KIDNEYS: Kidneys are symmetric in size. No evidence of renal calculi. No evidence of hydronephrosis. Some large mass noted lower pole right kidney 6.8 cm maximal dimension. Simple cysts left kidney. PANCREAS: Not well visualized. SPLEEN: Not enlarged. ABDOMINAL AORTA AND IVC: Visualized portions normal caliber. ASCITES: None seen. IMPRESSION: No evidence of cholelithiasis or pericholecystic fluid. Borderline gallbladder wall thickening. No abnormal gallbladder distention or biliary dilatation. A large suspicious mass is again demonstrated at the lower pole of the right kidney. DATA REPOSITORY:
--- NOTE | 2024-04-27 07:00 | DI.MRI_ITS ---
Exam(s) MR ABDOMEN WO/W EXAM: MR ABDOMEN WO/W CLINICAL HISTORY: R renal mass, nodule left adrenal vs stomach TECHNIQUE: Multiplanar multisequence MRI of the Abdomen was performed. CONTRAST MATERIAL: IV Contrast: 15 mL of Dotarem contrast administered. COMPARISON: CT CT ABDOMEN PELVIS W from 04/26/2024 US US ABDOMEN from 04/27/2024 FINDINGS: Lung bases: Unremarkable. Liver: Unremarkable. Pancreas: Unremarkable. Gallbladder and Bile Ducts: No evidence of gallstones. There is a trace amount of pericholecystic fl uid. No biliary dilatation. No abnormal gallbladder distention or visible wall thickening. Adrenals: 17 millimeter circumscribed nodule at the superior left adrenal gland, adjacent to the post erior fundus of stomach. Due to its small size and motion artifact is not well seen on multiple sequ ences. The right adrenal is unremarkable. Kidneys: 6.6 centimeter suspicious heterogeneous mass at the lower pole of the right kidney. 2 simpl e cysts are noted at the anterior upper pole of the left kidney. Few other tiny bilateral renal cyst s are present. Spleen: Unremarkable. Aorta: Unremarkable. Soft Tissues: Unremarkable. Bone: Unremarkable. Lymph Nodes: Unremarkable. Stomach and bowel: Unremarkable. Peritoneal cavity: Unremarkable. No evidence of ascites. IMPRESSION: A suspicious masses again noted at the lower pole of the right kidney. Left adrenal lesion is be characterized on the current exam due to small size, motion and large slice thickness. No evidence of gallstones. Trace amount of pericholecystic fluid. DATA REPOSITORY:
[2024-04-27 07:06] LABS: Abs Immature Grans 0.02 10^3/uL (0.0-0.06); Absolute Basophil Count 0.02 10^3/uL (0.0-0.2); Absolute Lymphocyte Count 1.32 10^3/uL (1.2-3.4); Absolute Monocyte Count 0.51 10^3/uL (0.1-0.8); Basophils % 0.3 %; Eosinophils % 2.9 %; HCT 53.2 % (40.0-50.0); HGB 17.2 g/dL (13.5-17.5); Immature Grans % 0.3 %; Lymphocytes % 18.9 %; MCH 29.2 pg (27.0-33.0); MCHC 32.3 % (32.0-36.0); MCV 90 fL (80-95); MPV 10.1 fL (8.0-11.0); Monocytes % 7.3 %; Neutrophils % 70.3 %; Platelet Count 155 10^3/uL (130-400); RDW 14.6 % (11.8-14.1); RDW-SD 49.1 fL; WBC 6.97 10^3/uL (4.4-10.8)
[2024-04-27 07:22] LABS: ALT 10 U/L (16-63); AST 8 U/L (15-37); Albumin 4.1 g/dL (3.4-5.0); Alkaline Phosphatase 112 U/L (46-116); Bilirubin, Direct 0.3 mg/dL (0.0-0.2); Bilirubin, Total 1.79 mg/dL (0.2-1.0); Total Protein 7.2 g/dL (6.4-8.2)
[2024-04-27 07:29] LABS: Magnesium 2.5 mg/dL (1.8-2.4)
[2024-04-27 07:44] VITALS: BP 141/94; PULSE 55; RESP 18; TEMP 37; O2SAT 97
[2024-04-27 07:59] LABS: Vitamin B12 475 pg/mL (193-986)
[2024-04-27] MEDS: Polyethylene Glycol 3350 17 GM PACKET 8.5 GM PO (09:08)
[2024-04-27] MEDS: Tamsulosin 0.4 MG CAPCR PO (09:09)
[2024-04-27] MEDS: Aspirin E.C. 81 MG TABEC PO (09:09)
[2024-04-27] MEDS: Carbidopa 25/Levodopa 100 TAB PO (09:09)
[2024-04-27] MEDS: Atorvastatin 40 MG TAB 80 MG PO (09:09)
[2024-04-27] MEDS: Enoxaparin 40 MG/0.4 ML SYR SC (09:09)
[2024-04-27] MEDS: Donepezil 5 MG TAB 10 MG PO (09:09)
[2024-04-27] MEDS: Normal Saline Flush 10 ML SYR IVP ×2 (09:10)
--- NOTE | 2024-04-27 09:31 | PDOC.CMIN ---
Date of service: 04/27/24 Time of Service: 09:32 Care Management Initial Assmt Initial Assessment Reason for Hospitalization: weakness Functional Status/Living Situation Town of Residence: [facility] Resides with: Other ([facility], assisted living facility) Medications Medication Management: No Issues/Barriers identified Advance Directives Advance Directives: Do you have an Advance Directive: AD On File at [facility]: N 02/02/24 14:43 Date Asked 04/26/24 04/26/24 14:38 AD Date Reviewed COLST On File at [facility] Yes 04/27/24 04:26 COLST Date Scanned 02/03/24 04/27/24 04:26 Code Status Resuscitation Status Full Code Portal Pt does not currently have a portal and education provided: Yes Insurance Coverage/Financial Issues Insurance: Medicare [facility] Medicare Supplement Care Team Visit Care Team Role Provider Type Breonna Sena Primary Care Provider ADV PRACTICE REGISTERED NURSE InPatient Norm Garrett Other Providers OTHER Buzz Barrera MD Emergency Provider [facility] STAFF PHYSICIAN Rajendra Mehta Admit Provider [facility] STAFF PHYSICIAN Attending Provider Discharge Potential Discharge Needs: PCP F/U Appt Anticipated Barriers to Discharge: Medical Status Patient/Family Education Needs: Review discharge instructions, discuss Ask Me Three Transportation: Other (to be determined by disposition) Plan: Anticipate Hieu will transfer back to the [facility], where he lives, when medically cleared. He will follow up with his PCP and plan of care and will transport via RCT vs private vehicle. CM will follow and continue to support discharge planning needs. Social Determinants of Health Screening Social Determinants of Health last assessed: 04/27/24 Will the Patient Participate in the Screening?: Unable to obtain Do you worry about having a steady place to live?: no Problems where you live: no known problems In the past 12 months, have you had to go without electric, gas, oil or water in your home?: no Have you or anyone in your house had to go without enough food to eat?: no Has lack of transportation kept you from medical appointments or from doing things needed for daily living?: no Has anyone in your life made you feel unsafe or unsupported?: no How hard is it for you to pay for the very basics like food, housing, medical care, and heating? Would you say it is:: Not hard at all Do you want help finding or keeping work or a job?: I do not need or want help If for any reason you need help with day-to-day activities such as bathing, preparing meals, shopping, managing finances, etc., do you get the help you need?: I don?t need any help How often do you feel lonely or isolated from those around you?: Never Do you speak a language other than [place] at home?: No Does the patient want assistance with any of the above?: No PFSH All Active Problems (Updated 04/26/24 @ 19:56 by Rajendra Mehta) DVT prophylaxis (Acute) Left adrenal mass (Acute) Right renal mass (Acute) Abnormal abdominal CT scan (Acute) Generalized weakness (Acute) Altered mental status, unspecified (Acute) Falls frequently (Acute) Full code status (Acute) Palliative care patient (Acute) ACP (advance care planning) (Acute) Medical History (Updated 04/26/24 @ 19:56 by Rajendra Mehta) BPH with obstruction/lower urinary tract symptoms B12 deficiency Constipation Memory deficit Hypertension Parkinsons disease Cardiomyopathy, ischemic ASCVD (arteriosclerotic cardiovascular disease) Surgical History (Updated 04/26/24 @ 19:49 by Rajendra Mehta) S/P vasectomy Social History (Updated 04/26/24 @ 19:52 by Rajendra Mehta) Smoking/Tobacco Use Status: Never Smoking risk assessment performed?: Yes Alcohol Intake: never Drug use: Never Housing: assisted living facility Do you feel safe at home: Yes Do you feel safe in your relationship?: Yes Additional Social history: 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, but ex- Maria Victoria nancy/DPOA. Daughter in [facility], Daughter Rubina [facility].
--- NOTE | 2024-04-27 09:42 | IN_ITS ---
PT Notes Visit Reasons: AMS, Weakness, Renal Mass Physical Therapy Inpatient Initial Evaluation Date: 04/27/2024 Referring Doctor: Rajendra Mehta MD PT Orders: PT CONSULT: Safety Consult for D/C. 73 yo with parkinson's, falls admitted acute weakness/AMS Precautions: Fall. Standard. Activity as tolerated. Patient Profile/Admitting Diagnosis: Patient is a [id number]-old male resident of [place] in admitted due to increased confusion and weakness patient is admitted for management of altered mental status, right renal mass, left adrenal mass, ASCVD, B12 deficiency, Parkinson's disease, constipation, BP headache gets to see Dr. Garg is leaving right now yeah yeah I heard I just read 5 minutes ago family has been dressed and ready to go Thursday not happy there they are fine they just want to get them H. PMHX: All Active Problems (Updated 04/26/24 @ 19:56 by Rajendra Mehta) DVT prophylaxis (Acute) Left adrenal mass (Acute) Right renal mass (Acute) Abnormal abdominal CT scan (Acute) Generalized weakness (Acute) Altered mental status, unspecified (Acute) Falls frequently (Acute) Full code status (Acute) Palliative care patient (Acute) ACP (advance care planning) (Acute) Medical History (Updated 04/26/24 @ 19:56 by Rajendra Mehta) BPH with obstruction/lower urinary tract symptoms B12 deficiency Constipation Memory deficit Hypertension Parkinsons disease Cardiomyopathy, ischemic ASCVD (arteriosclerotic cardiovascular disease) Surgical History (Updated 04/26/24 @ 19:49 by Rajendra Mehta) S/P vasectomy Social History/Home Situation: [facility] resident. Uses 4[employer] with modified [employer] Equipment Owned/DME: 4[employer] Subjective: Firm that he could walk to testing downstairs but with explanation about 2 [id number] tests, he agreed to sitting on transport chair to be brought down by Nurse Yusuf. Patient was agreeable to be moved out of bed and walked for a short distance from edge of bed to transport chair at the door using his walker. No report of pain, headache, lightheadedness throughout. Was agreeable to working some more with PT after return from testing Objective: General Observation: Resting in bed. Mildly anxious. Mental Status: Alert and oriented as to person and purpose. Able to pay attentio n, focus, and respond appropriately. Pain: None reported Vital Signs: Closely monitored by nursing staff ROM: Right Upper Extremity: Shoulder Flexion allows up to about 100 deg. Shoulder abduction allows up to about 90 deg. Elbow flexion WFL. Wrist flexion WFL. Functional opening and closing of hand WFL. Left Upper Extremity: Shoulder Flexion allows up to about 100 deg. Shoulder abduction allows up to about 90 deg. Elbow flexion WFL. Wrist flexion WFL. Functional opening and closing of hand WFL. Right Lower Extremity: Hip flexion WFL. Hip abduction WFL. Knee flexion WFL. Ankle dorsiflexion WFL. Ankle plantarflexion WFL. Left Lower Extremity: Hip flexion WFL. Hip abduction WFL. Knee flexion WFL. Ankle dorsiflexion WFL. Ankle plantarflexion WFL. Strength: Right Upper Extremity: Shoulder flexors 3-/5. Shoulder abductors 3-/5. Elbow flexors 4-/5. Elbow extensors 4-/5. Community Development Officer strong. Left Upper Extremity: Shoulder flexors 3-/5. Shoulder abductors 3-/5. Elbow flexors 4-/5. Elbow extensors 4-/5. Community Development Officer strong. Right Lower Extremity: Hip flexors 4/5. Hip abductors 4/5. Knee flexors 5/5. Knee extensors 5/5. Ankle dorsiflexors 4/5. Ankle plantarflexors 4/5. Left Lower Extremity: Hip flexors 4/5. Hip abductors 4/5. Knee flexors 5/5. Knee extensors 5/5. Ankle dorsiflexors 4/5. Ankle plantarflexors 4/5. Bed Mobility/Transfers: Minimal cueing provided for use of B hands as needed for support, movement sequence, AD management, and posture to reduce fall risk and minimize pain report Supine to sit minimal assist Sit to stand minimal assist with FWW Stand to sit minimal assist with FWW Bed to transport chair minimal assist with FWW Transport chair to bed minimal assist with FWW Gait: Patient was able to cover about 12 feet using front-wheeled walker with minimal assist and minimal verbal cueing for AD management and for safe turning as well as backing up onto transport chair. After testing, patient was able to complete about 75 feet of hallway ambulation using FWW with minimal assist. B LE rigidly moves forward, trunk and hips mildly flexed. Tremors and limb incoordination making whole movement unsteady needing physical assistance from PT. Directional turns were precarious--slow and discontinuous. decreased trunk rotation. Balance: Static Sitting: Normal Dynamic Sitting: Good Static Standing: Fair Dynamic Standing: Fair Special Tests: Mobility Limitations Standardized Measure [facility] AM-PAC 6 clicks Basic Mobility Inpatient Short Form: Raw Score: 18 CMS Score: 47% deficit 4-stage balance test: Feet together 3 seconds Semi-tandem 2 seconds Full tandem deferred One-legged stance deferred Rapid alternating movement: Impaired Informed Consent/Education: Patient was instructed in purpose of PT consult and plan of care. Agreeable to proceed with established PT POC to achieve personal goals. Assessment: Patient presents with clinical signs and symptoms consistent with current/admitting diagnoses that have resulted to mobility limitations, gait instability, generalized weakness, and overall ADL decline as demonstrated by the following impairment level findings: 1. Decreased strength to B UE/LE major muscle groups 2. Impaired standing balance, see 4-stage balance test 3. Impaired activity tolerance 4. Resting tremors in B UE and LE with B UE>>B LE 5. Incoordination of B UE /LE Impairments are contributing to the following functional limitations: 1. Decline in bed mobility skills 2. Decline in transfer skills 3. Difficulty with ambulation without assistive device and physical assistance, needs wheelchair follow for safety 4. Increased completion time for mobility ADL performance 5. Increased risk for falls 6. Difficulty with managing steps alone safely Patient is assessed as a 65922 moderate complexity based on the following: History: 73-year-old male with past medical history as indicated above Examination: Demonstrable impairment in strength, balance, and mobility level with underlying impairments and functional limitations as exhibited above as well as deficit score of 47% utilizing the [facility] Mobility Inpatient Short Form Presentation: Evolving Decision Makin moderate complexity Goals: Goals X1 week 1. Supine-Sit independent 2. Sit-Supine independent 3. Sit-Stand independent 4. Stand-Sit independent with FWW 5. Bed-Chair independent with FWW 6. Chair-Bed independent with FWW 7. Independent gait on level surface with use of FWW for at least 150 feet without report of pain nor dyspnea 8. Good static and dynamic standing balance/tolerance Plan of Care/Treatment Plan: 1-2x/day, 7 days/week x 1 week. Plan of care has been reviewed with the SPRING UP SUPERVISOR providing the service under Physical Therapy direction. Initiate Physical Therapy intervention for pain management as needed, strengthening, bed mobility, transfers, gait, stairs, balance training, and use of assistive device. DISCHARGE RECOMMENDATIONS: [] Home with no services [] [] Home with services [specify] [] Home with outpatient PT [] [] SNF for continued rehabilitation [] [] Custodial Care [] [] SNF versus LTC based on ability to participate and progress [] [X] Short-term SNF vs PT based on progress towards goals with ongoing acute PT intevention TREATMENT CODE/TIME: 70758 x 20 minutes for 1 unit, 04218 x 18 minutes for 1 unit (9:42-9:58 and 11:26-11:48). Thank you for the opportunity to participate in the care of this patient. Leonie Lobato PT, DPT, CLT [facility] [place], [place]
[2024-04-27] MEDS: Gadoterate meglumine 20 ML VIAL 15 ML IVP (10:58)
[2024-04-27] MEDS: Normal Saline - Diluent 50 ML VIAL IJ (10:59)
[2024-04-27 12:05] VITALS: BP 101/75; PULSE 72; RESP 19; TEMP 36.6; O2SAT 97
--- NOTE | 2024-04-27 12:49 | DSE_ITS ---
Date of service: 04/27/24 Time of Service: 12:49 DS: Diagnosis Discharge Diagnosis (1) Altered mental status, unspecified: Status: Acute (2) Right renal mass: Status: Acute (3) Left adrenal mass: Status: Acute (4) ASCVD (arteriosclerotic cardiovascular disease): (5) B12 deficiency: (6) Parkinsons disease: (7) Constipation: (8) BPH with obstruction/lower urinary tract symptoms: (9) DVT prophylaxis: Status: Acute Discharge Plan Disposition Patient Disposition: Home Condition: Good Discharge Details Reason For Visit: AMS, Weakness, Renal Mass Admit Date/Time: 04/26/24 18:48 Admit Provider: Rajendra Mehta Attending Provider: Rajendra Mehta Primary Care Provider: Breonna Sena [facility] Course Hospital Course: Patient initially presented with concerns for change in mental status. Workup in the emergency department was largely unremarkable with the exception of some questionable gallbladder thickening and surrounding fluid, however this was not seen on follow-up ultrasound. Additionally, the patient did have elevated bilirubin it remained stable during hospitalization and appears to have been elevated in the past. However, on abdominal CT and MRI patient was noted to have right lower pole renal mass suspicious for malignancy for which it will be recommended he have outpatient oncology follow-up. However, as for the patients mental status, it appears that he waxes and wanes, and has been having some mental and functional status decline for some time now. Given that the patient is back at this baseline mental status it is determined that he can be discharged back to [facility] and will have referral sent to Oncology for follow-up of his right renal mass. Home Meds and New Rx's Prescriptions: Continued carbidopa-levodopa 25-100 mg tablet 2 tab PO TID amantadine HCl 100 mg capsule 100 mg PO BID atorvastatin 80 mg tablet 80 mg PO DAILY aspirin [Adult Low Dose Aspirin] 81 mg tablet,delayed release (DR/EC) 81 mg PO DAILY donepezil 10 mg tablet 10 mg PO DAILY tamsulosin 0.4 mg capsule 0.4 mg PO DAILY polyethylene glycol 3350 [Miralax] 17 gram/dose powder 8.5 g PO .QOD Discharge Instructions Referrals: HEMATOLOGY/ONC,[facility] [OTHER] - (right lower pole renal mass) Activity:: Activity as Tolerated Equipment/Supplies:: No Equipment Needed Diet:: As Tolerated Discharge Orders Discharge Orders: Discharge Order (Routine); Ordered 04/27/24 Ordered By: Peter Galdamez DS: Summary Time Spent with Patient providing and/or coordinating discharge services: Greater than 30 minutes Status at Discharge Functional status at discharge: independent ambulation Overall status at discharge: patient is back to baseline Mental Status: mental status grossly normal Speech and Movement: speech and movement normal Mood: congruent mood Affect: normal affect Quality:SDOH Health Related Social Needs: No Data to Display Exam Narrative Exam Narrative: older gentleman laygin in bed in no acute distress, awake, alert, oriented to person only, heart RRR, lungs CTAB, abdomen soft, non-tender, [id number], severe resting tremors noted in bilateral upper and lower extremities Psych Mental Status: mental status grossly normal Speech and Movement: speech and movement normal Mood: congruent mood Affect: normal affect DS: Data Vitals/I&O Vitals and I&O: Vital Signs Temperature 97.9 F 04/27/24 12:05 Temperature Source Temporal Artery Scan 04/27/24 12:05 Pulse 72 04/27/24 12:05 Pulse Rhythm Irregular 04/26/24 22:21 Pulse 65 04/26/24 18:20 Respiratory Rate 19 04/27/24 12:05 Respiratory Effort Normal, Non-Labored 04/26/24 22:21 Respiratory Depth Normal 04/26/24 22:21 Respiratory Pattern Normal 04/26/24 22:21 Blood Pressure 101/75 04/27/24 12:05 Blood Pressure Mean 101 04/26/24 20:16 Pulse Oximetry 97 04/27/24 12:05 Oxygen Delivery Method Room Air 04/27/24 07:44 Oxygen Flow Rate 0 04/27/24 07:44 Pain Level 0 04/27/24 03:21 Intake & Output 04/26/24 04/27/24 04/27/24 17:59 05:59 17:59 Intake Total Output Total 120 / 120 100 / 100 Balance -110 / -110 -100 / -100 Weight 190 lb 162 lb Intake: IV Output: Urine 120 / 120 100 / 100 Other: Urine Color Yellow Yellow Urine Appearance Clear Clear Urine Odor None Comment tried the commode but was incontinent Data Completed and Pending Labs on day of discharge: Labs from last 24 hours 04/27/24 04/26/24 04/26/24 06:40 15:44 15:35 WBC 6.97 RBC 5.90 H Hgb 17.2 Hct 53.2 H MCV 90 MCH 29.2 MCHC 32.3 RDW 14.6 H Plt Count 155 MPV 10.1 Immature Gran % 0.3 Neutrophils % 70.3 Lymphocytes % 18.9 Monocytes % 7.3 Eosinophils % 2.9 Basophils % 0.3 Nucleated RBC % 0.0 Absolute Neutrophils 4.90 Absolute Lymphocytes 1.32 Absolute Monocytes 0.51 Absolute Eosinophils 0.20 Absolute Basophils 0.02 Sodium Potassium Chloride Carbon Dioxide Anion Gap BUN Creatinine Est GFR (CKD-EPI 2020) Glucose Calcium Magnesium 2.5 H Total Bilirubin 1.79 H Conjugated Bilirubin 0.3 H AST 8 L ALT 10 L Alkaline Phosphatase 112 Troponin I Total Protein 7.2 Albumin 4.1 Vitamin B12 475 Urine Color Yellow Urine Clarity Clear Urine pH 6.5 Ur Specific Butler >= 1.030 H Urine Protein Negative Urine Ketones 15 H Urine Blood Negative Urine Nitrite Negative Urine Bilirubin Negative Urine Urobilinogen 2.0 H Ur Leukocyte Esterase Negative Urine Glucose Negative COVID-19 Source NASOPHARYNX SARS-CoV-2 (PCR) Negative Influenza Type A (PCR) Negative Influenza Type B (PCR) Negative RSV (PCR) Negative 04/26/24 14:55 WBC 6.78 RBC 5.39 Hgb 16.0 Hct 48.8 MCV 91 MCH 29.7 MCHC 32.8 RDW 14.9 H Plt Count 153 MPV 10.3 Immature Gran % 0.4 Neutrophils % 72.6 Lymphocytes % 16.2 Monocytes % 7.8 Eosinophils % 2.7 Basophils % 0.3 Nucleated RBC % 0.0 Absolute Neutrophils 4.92 Absolute Lymphocytes 1.10 L Absolute Monocytes 0.53 Absolute Eosinophils 0.18 Absolute Basophils 0.02 Sodium 144 Potassium 4.1 Chloride 107 Carbon Dioxide 33.1 H Anion Gap 3.9 BUN 15 Creatinine 1.0 Est GFR (CKD-EPI 2020) 79.47 Glucose 99 Calcium 9.0 Magnesium 2.4 Total Bilirubin 1.78 H Conjugated Bilirubin AST 7 L ALT 8 L Alkaline Phosphatase 112 Troponin I 8 Total Protein 7.0 Albumin 3.9 Vitamin B12 Urine Color Urine Clarity Urine pH Ur Specific Butler Urine Protein Urine Ketones Urine Blood Urine Nitrite Urine Bilirubin Urine Urobilinogen Ur Leukocyte Esterase Urine Glucose COVID-19 Source SARS-CoV-2 (PCR) Influenza Type A (PCR) Influenza Type B (PCR) RSV (PCR) PFSH All Active Problems (Updated 04/26/24 @ 19:56 by Rajendra Mehta) DVT prophylaxis (Acute) Left adrenal mass (Acute) Right renal mass (Acute) Abnormal abdominal CT scan (Acute) Generalized weakness (Acute) Altered mental status, unspecified (Acute) Falls frequently (Acute) Full code status (Acute) Palliative care patient (Acute) ACP (advance care planning) (Acute) Medical History (Updated 04/26/24 @ 19:56 by Rajendra Mehta) BPH with obstruction/lower urinary tract symptoms B12 deficiency Constipation Memory deficit Hypertension Parkinsons disease Cardiomyopathy, ischemic ASCVD (arteriosclerotic cardiovascular disease) Surgical History (Updated 04/26/24 @ 19:49 by Rajendra Mehta) S/P vasectomy Social History (Updated 04/26/24 @ 19:52 by Rajendra Mehta) Smoking/Tobacco Use Status: Never Smoking risk assessment performed?: Yes Alcohol Intake: never Drug use: Never Housing: assisted living facility Do you feel safe at home: Yes Do you feel safe in your relationship?: Yes Additional Social history: 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 Now lives at [facility], but ex- Maria Victoria cruz/DPOA. Daughter in [facility], Daughter [facility]. Time Spent with Patient Time Spent with Patient: <45 minutes Time was spent: preparing to see the patient(eg.review tests), obtaining and/or reviewing separately otained hiistory, ordering medications,tests, procedures, referring, communicating with other health date night caregiver, indepentently interpreting results, counseling the patient and care coordination
--- NOTE | 2024-04-27 15:01 | CMPROGNOTE_ITS ---
Date of service: 04/27/24 Time of Service: 15:01 Care Management Progress Note Progress Note Text Progress Note Text: Hieu was admitted yesterday from the [facility] where he resides. 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 There was concern that he might have an infectious process such as a UTI so he was sent to the hospital for evaluation. His workup included blood work, a urinalysis and some imaging. His urine was negative for infection markers. His WBC was normal and he was afebrile. Hieu had Ct scans and an MRI which revealed a large mass on his right kidney which will need outpatient follow up. There was no sign of pneumonia or any intra-abdominal process. Hieu's cognition waxes and wanes per the associate director of nursing at The [facility]. Hieu was able to ambulate with a FWW with PT with minimal assist for a distance of 75 feet. They did recommend HH PT which was ordered by the provider at discharge. CM contacted Maria Victoria Keith, Hieu's ex- , who is his HCA to notify her of the discharge. As she had planned to visit anyway, she offered to transport Hieu back to the [facility].. Discharge Potential Discharge Needs: PCP F/U Appt Anticipated Barriers to Discharge: None Identified Patient/Family Education Needs: Review discharge instructions, discuss Ask Me Three Transportation: Private vehicle Plan: Hieu will be transferred back to the [facility] where he resides. He will have new HH PT ordered and will follow up with his PCP and plan of care. His Maria Victoria will transport via private vehicle. Social Determinants of Health Screening Social Determinants of Health last assessed: 04/27/24 Will the Patient Participate in the Screening?: Unable to obtain Do you worry about having a steady place to live?: no Problems where you live: no known problems In the past 12 months, have you had to go without electric, gas, oil or water in your home?: no Have you or anyone in your house had to go without enough food to eat?: no Has lack of transportation kept you from medical appointments or from doing things needed for daily living?: no Has anyone in your life made you feel unsafe or unsupported?: no How hard is it for you to pay for the very basics like food, housing, medical care, and heating? Would you say it is:: Not hard at all Do you want help finding or keeping work or a job?: I do not need or want help If for any reason you need help with day-to-day activities such as bathing, preparing meals, shopping, managing finances, etc., do you get the help you need?: I don?t need any help How often do you feel lonely or isolated from those around you?: Never Do you speak a language other than Icelandic at home?: No Does the patient want assistance with any of the above?: No
--- NOTE | 2024-04-27 15:25 | PDOC.HHF2F_ITS ---
Home Health Referral Home Health Orders Clinical synopsis of why skilled professionals are needed: Parkinsons, dementia, autonomic dysfunction Physical Therapist: Check all that apply Increase strength & endurance for safe mobility at home: Ordered To design/establish home maintenance program: Ordered Fall reduction therapy program for patient with history of frequent falls: Ordered Home safety evaluation and teaching/gait training including stair management (if applicable): Ordered Encounter Date and Reason: I certify that a FTF encounter for this patient was performed on April 27, 2024 and that such encounter was related to the primary reason the patient requires home health services. The encounter was conducted in the following ma nner: * By me as the certifying physician, PATHOLOGIST ASSISTANT, PA or * By an inpatient physician, PATHOLOGIST ASSISTANT or PA during an inpatient stay who communicated findings to me, Certification And Authentication I certify that I composed the above information based on my clinical judgment relating to this patient's medical condition and, if applicable, clinical findings communicated to me by the NPP or inpatient physician who performed the FTF encounter. Name of Provider that will be monitoring home health services: Breonna Sena
== END 2024-04-27 13:45 | disposition home or self-care (01) ==
LOC: ER 18:30 → MS 21:58
PROVIDERS: Admitting Provider Family Medicine; Emergency Provider Emergency Medicine; PCP Nurse Practitioner Family; Visit Provider Family Medicine
DX: R41.82 Altered mental status, unspecified (principal); E27.8 Other specified disorders of adrenal gland; N28.89 Other specified disorders of kidney and ureter; I25.10 Atherosclerotic heart disease of native coronary artery without angina pectoris; E53.8 Deficiency of other specified B group vitamins; N40.1 Benign prostatic hyperplasia with lower urinary tract symptoms; K59.00 Constipation, unspecified; G20.A1 Parkinson's disease without dyskinesia, without mention of fluctuations; N13.8 Other obstructive and reflux uropathy; R29.6 Repeated falls; I25.5 Ischemic cardiomyopathy; E80.6 Other disorders of bilirubin metabolism; Z79.899 Other long term (current) drug therapy
CPT/HCPCS: 00123; 36415; 51701; 74183; 80053; 80076; 87637; 93005; 96372; 97162; 97530; 99285; J1650; 70450; 71046; 74177; 76700; 81003; 82607; 83735; 84484; 85025; 93010; 99223; 99239; G0378; J3490

== ENCOUNTER 2024-05-17 17:43 | Emergency (ER) | payer MEDICARE, SELFPAY ==
[2024-05-17] VITALS (16 sets, daily range): BP systolic 109–133; BP diastolic 66–90; PULSE 64–126; RESP 16–24; TEMP 36.9; O2SAT 94–100
--- NOTE | 2024-05-17 17:45 | RT.EKG_ITS ---
APPROVED REPORT Exam: Resting ECG Reason for Exam: fall unknown downtime Patient Location: E HR:76 bpm ECG Measurements Heart Rate 76 AXIS NC 174 P 70 QRSd 89 QRS -41 QT 371 T 78 QTc 417 Conclusion Sinus rhythm...normal P axis, V-rate 60- 99 Probable left atrial enlargement...P >50mS, <-0.10mV V1 Left axis deviation...QRS axis (-30,-90) Low voltage, precordial leads...precordial leads <1.0mV
--- NOTE | 2024-05-17 17:49 | ED.GENADUL_ITS ---
Discharge Plan Disposition Patient Disposition: Shelter Facility(SNF) Condition: Improving Discharge Details Clinical Impression: Contusion of face, Generalized weakness, Contusion of hip, right, Parkinson's disease Primary Care Provider: Breonna Sena ED Provider: Dallas Wagner Home Meds and New Rx's Prescriptions: Continued carbidopa-levodopa 25-100 mg tablet 2 tab PO TID amantadine HCl 100 mg capsule 100 mg PO BID atorvastatin 80 mg tablet 80 mg PO DAILY aspirin [Adult Low Dose Aspirin] 81 mg tablet,delayed release (DR/EC) 81 mg PO DAILY donepezil 10 mg tablet 10 mg PO DAILY tamsulosin 0.4 mg capsule 0.4 mg PO DAILY polyethylene glycol 3350 [Miralax] 17 gram/dose powder 8.5 g PO .QOD Discharge Instructions Instructions: Parkinson disease, Generalized Weakness (DC), Weakness ED Discharge Data Discharge Physician: Dallas Wagner HPI General Date/Time Provider Initiated Documentation: 05/17/24 17:49 . HPI Narrative: Patient who lives at the [facility] which is assisted living and has a history of Parkinson disease who apparently fell at 3 PM approximately 2-hour and 1/2 hours ago and is complaining of right hip right inner groin pa in. He does not know how he tripped but denies any loss of consciousness. Related Data Home Medications ?Medication ?Instructions ?Recorded ?Confirmed amantadine HCl 100 mg capsule 100 mg PO BID 01/06/24 05/17/24 aspirin 81 mg tablet,delayed 81 mg PO DAILY 01/06/24 05/17/24 release (Adult Low Dose Aspirin) atorvastatin 80 mg tablet 80 mg PO DAILY 01/06/24 05/17/24 carbidopa 25 mg-levodopa 100 mg 2 tab PO TID 01/06/24 05/17/24 tablet donepezil 10 mg tablet 10 mg PO DAILY 01/06/24 05/17/24 tamsulosin 0.4 mg capsule 0.4 mg PO DAILY 01/06/24 05/17/24 polyethylene glycol 3350 17 8.5 g PO .QOD 04/12/24 05/17/24 gram/dose oral powder (Miralax) Allergies Allergy/AdvReac Type Severity Reaction Status Date / Time No Known Allergies Allergy Verified 05/17/24 18:03 General IRENE: 3 Review of Systems Narrative: Review of Systems: Constitutional: No fevers, chills, sweats Eye: No recent visual problems ENT: No ear pain, nasal congestion, sore throat Respiratory: No shortness of breath, cough Cardiovascular: No Chest pain, palpitations, syncope Gastrointestinal: No nausea, vomiting, diarrhea Genitourinary: No hematuria Lucian/Lymph: Negative for bruising tendency, swollen lymph glands Endocrine: Negative for excessive thirst, excessive hunger Integumentary: No rash, pruritus, abrasions Neurologic: Alert & oriented X 4 Psychiatric: No anxiety, depression Exam Narrative Exam Narrative: Exam; vitals signs as reported above normal Constitutional; In no acute distress, afebrile General: cooperative, healthy appearing, comfortable and no acute distress shaking due to Parkinson's HEENT: Head: normal to inspection, no palpable skull fracture and normocephalic atraumatic Eyes: : appearance normal, both eyes and all related structures EOM intact bilaterally Pupils: PERRL : conjunctiva normal Direct ophthalmoscopy: normal light reflex, normal conjunctiva, normal visual acuity Ears: Normal TM, normal external canal Nose: normal no rhinorreha Neck no JVD, supple non tender Neck: normal visual inspection, full ROM and no lymphadenopathy Chest: normal inspection of the chest Respiratory : normal respiratory effort and able to speak in complete sentences no wheezing no rales Cardio Rate: regular rate, rhythm: regular rhythm normal heart sounds S1 and S2 no murmurs, gallops, or rubs GI : normal to inspection, normal bowel sounds, soft, non tender, non distended, no organomegaly Back/Spine/ no CVA tenderness Thoracic/Lumbar Spine: no tenderness or deformities Skin no rashes or lesions Neuro: patient alert oriented x 4 and no meningeal signs, Cranial Nerves: CN's II-XI intact bilaterally, Cognition: normal cognition, Speech: speech normal, Gait: normal gait, Depp tendon reflexes normal 2+ muscle strength 5/5 bilaterally Extremities, no edema, full range of motion, normal strength Medical Decision Making MDM: Summary: Patient has history of Parkinson's and fell at the assisted living where he resides sustaining trauma to his left side of his face and was complaining of right groin and right hip pain. X-ray of the pelvis and the right hip were negative and the CT of the head and facial bones was negative as well. He was given analgesics and now he is able to ambulate in the emergency department adequately. Labs do not show any increased of the CK or any other abnormality except for mild ovation of the white blood cell count of 12,000 but all labs including viral panel flu COVID are negative. Patient states that he feels better and wants to be discharged back to the assisted living facility Data Review Analysis All the data on this patient was reviewed by me including laboratory and imaging studies as well as bedside studies performed by me Independent review of Studies Imaging As reported above CT head and facial bones and x-ray of the hip and pelvis negative Lab: Labs are unremarkable Risk Stratification: Patient is able to ambulate after he fell significant fusion to his right hip and face he has Parkinson's and never had a syncopal episode and will be discharged home Differential Diagnosis: 1. Parkinson's 2. Face contusion 3. Hip contusion 4. Syncope 5. Consultants: Shared disposition: Patient understands disposition will be discharged home and agrees Impression: Medical Records Medical records reviewed: Yes I reviewed the patient's medical records. Imaging Data Radiologic Study #2: Attestation: I personally reviewed and interpreted this imaging study as follows: Imaging: X-Ray My impression: No fracture of the pelvis or right hip Lab Data Lab results reviewed: Yes I reviewed the patient's lab results. ECG Data Attestation: I personally reviewed and interpreted this ECG (s) as follows: Prior ECG tracings: available for review Interpretation: Normal sinus rhythm left axis deviation no acute ST-T changes heart rate of 76 Quality:SDOH Health Related Social Needs: No Data to Display PFSH All Active Problems (Updated 05/17/24 @ 20:59 by Dallas Wagner MD) Parkinson's disease (Chronic) Contusion of hip, right (Acute) Contusion of face (Acute) Left adrenal mass (Acute) Right renal mass (Acute) Abnormal abdominal CT scan (Acute) Generalized weakness (Acute) Falls frequently (Acute) Full code status (Acute) Palliative care patient (Acute) ACP (advance care planning) (Acute) Medical History BPH with obstruction/lower urinary tract symptoms B12 deficiency Constipation Memory deficit Hypertension Parkinsons disease Cardiomyopathy, ischemic ASCVD (arteriosclerotic cardiovascular disease) Surgical History S/P vasectomy Social History Smoking/Tobacco Use Status: Never Smoking risk assessment performed?: Yes Alcohol Intake: never Drug use: Never Housing: assisted living facility Do you feel safe at home: Yes Do you feel safe in your relationship?: Yes Additional Social history: 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 Now lives at [facility], but ex- Maria Victoria supportive/DPOA. Daughter in [facility], Daughter [facility].
[2024-05-17] MEDS: MORPHine 4 MG/ML SYR IVP (18:06)
[2024-05-17 18:08] LABS: Abs Immature Grans 0.05 10^3/uL (0.0-0.06); Absolute Basophil Count 0.04 10^3/uL (0.0-0.2); Absolute Eosinophil Count 0.04 10^3/uL (0.0-0.7); Absolute Lymphocyte Count 0.46 10^3/uL (1.2-3.4); Absolute Monocyte Count 0.62 10^3/uL (0.1-0.8); Absolute Neutrophil Count 11.53 10^3/uL (1.2-6.7); Basophils % 0.3 %; Eosinophils % 0.3 %; HCT 51.6 % (40.0-50.0); HGB 16.8 g/dL (13.5-17.5); Immature Grans % 0.4 %; Lymphocytes % 3.6 %; MCHC 32.6 % (32.0-36.0); MCV 89 fL (80-95); MPV 10.4 fL (8.0-11.0); Monocytes % 4.9 %; Neutrophils % 90.5 %; Platelet Count 176 10^3/uL (130-400); RDW-SD 49.3 fL; WBC 12.74 10^3/uL (4.4-10.8)
[2024-05-17 18:20] LABS: ALT 8 U/L (16-63); AST 11 U/L (15-37); Albumin 4.1 g/dL (3.4-5.0); Alkaline Phosphatase 124 U/L (46-116); Anion Gap 7.3 mmol/L (3-11); BUN 15 mg/dL (7-18); Bilirubin, Total 1.49 mg/dL (0.2-1.0); CO2 30.7 mmol/L (21.0-32.0); Calcium 9.4 mg/dL (8.5-10.1); Chloride 106 mmol/L (98-107); Creatine Kinase 197 U/L (39-308); Estimated GFR 79.47 (mL/min/1.73m2); Glucose 102 mg/dL (74-106); Potassium 4.6 mmol/L (3.5-5.1); Sodium 144 mmol/L (136-145); Total Protein 7.3 g/dL (6.4-8.2)
--- NOTE | 2024-05-17 18:47 | DI.RAD_ITS ---
Exam(s) XR HIP RT COMPLETE AP PELVIS EXAM: XR HIP RT COMPLETE AP PELVIS CLINICAL HISTORY: fall and right hip and r groin pain. TECHNIQUE: 2D digital imaging was performed of the right hip. Two images were obtained. AP pelvis a nd lateral right hip views were obtained. COMPARISON: CT CT ABDOMEN PELVIS W from 04/26/2024 FINDINGS: BONES: No acute fracture is present. No bony destructive lesion is seen. JOINTS: No dislocation present. SOFT TISSUE: Normal. IMPRESSION: No acute fracture or dislocation. DATA REPOSITORY: RADIATION DOSE DELIVERED:
[2024-05-17 19:11] LABS: Bilirubin Negative (Negative); Blood Negative (Negative); Clarity Clear (Clear); Glucose Negative (Negative); Ketones 15 mg/dL (Negative); Leukocyte Esterase Negative (Negative); Nitrite Negative (Negative); Specific Gravity >= 1.030 (1.005-1.025); pH 5.5 (5-8)
[2024-05-17 19:24] LABS: Bacteria Rare HPF (Negative); C & S Indicated? No; Casts Negative LPF (Negative); Crystals Negative HPF (Negative); Epithelial Cells Rare HPF (Negative); Mucus Trace (Negative); Other Cells Negative (Negative); RBC Negative HPF (0-2); WBC 0-2 HPF (0-5)
--- NOTE | 2024-05-17 19:32 | DI.CT_ITS ---
Exam(s) CT HEAD FACIAL WO EXAM: CT HEAD FACIAL WO CLINICAL HISTORY: fall and left side pain. TECHNIQUE: Imaging Protocol: Axial computed tomography images with coronal and sagittal reformatted images were created and reviewed COMPARISON: CT CT HEAD WO from 04/26/2024 FINDINGS: CT Head: Ventricles and Extra axial spaces: Normal in size and morphology for the patient's age. Hemorrhage: None. Cerebral parenchyma: Mild atrophy. No evidence of infarct or mass. Midline shift: None. Brainstem/Cerebellum: Normal. Calvarium: Normal. Visualized Paranasal sinuses/Mastoids: Mild mucosal thickening at the left maxillary sinus and ethmoi d air cells. Soft Tissues: Unremarkable. CT Face: Facial Bones: No fracture is noted in facial bones. Sinuses and Mastoids: Mild mucosal thickening of the left maxillary sinus and ethmoid sinuses. Globes, extraocular muscles, optic nerves and retrobulbar fat: Normal. Upper aerodigestive tract: Mame bullosa of the middle turbinates. Minimal nasal septal deviation t oward the right. Mandible and bilateral temporomandibular joints: Normal. Soft tissues: Normal. IMPRESSION: 1. No acute intracranial process. 2. No acute facial fracture. RADIATION DOSE DELIVERED: 1,535.7mGy.cm Total DLP DATA REPOSITORY: All CT scans at this facility are submitted to the National Radiology Data Registry (NRDR) Dose Index Registry (DIR) with the [employer] (ACR). RADIATION OPTIMIZATION: All CT scans at this facility use at least one of these dose optimization te chniques: automated exposure control; mA and/or kV adjustment per patient size (includes targeted exa ms where dose is matched to clinical indication); or iterative reconstruction.
[2024-05-17 19:53] LABS: COVID-19 PCR Negative (Negative); Influenza A PCR Negative (Negative); Influenza B PCR Negative (Negative); RSV PCR Negative (Negative)
[2024-05-17 19:55] LABS: Source Nasopharynx
--- NOTE | 2024-05-17 20:33 | DI.VRAD_ITS ---
PROCEDURE INFORMATION: Exam: CT Head Without Contrast Exam date and time: 05/17/2024 7:23 PM Age: 73 years old Clinical indication: Other: Fall and left side pain TECHNIQUE: Imaging protocol: Computed tomography of the head without contrast. COMPARISON: CT HEAD WO 04/26/2024 4:18 PM FINDINGS: Brain: There is mild diffuse cortical atrophy. No acute infarct or hemorrhage identified. There is no midline shift or mass lesion. Posterior fossa: No acute focal lesion of the brainstem or cerebellum identified. Orbits: The globes and retro-orbital soft tissues are normal. The bony orbits are intact. The lamina papyracea are intact. CSF spaces: There are no abnormal subdural or epidural fluid collections. There is no subarachnoid hemorrhage. The basilar cisterns are clear. Cerebral ventricles: The ventricles are mildly dilated but appropriate to the degree of atrophy. Paranasal sinuses: There is mild mucoperiosteal thickening along the floor of the left maxillary sinus. There is mild mucoperiosteal thickening of the right and left ethmoid air cells. The sphenoid and frontal air cells are clear. Mastoid air cells: The mastoid air cells are clear. Bones: No calvarial fracture identified. Soft tissues: No scalp hematoma identified. IMPRESSION: 1. Mild atrophy but no current acute infarct, hemorrhage or mass lesion identified. 2. No calvarial fracture identified. No scalp hematoma. 3. Mild mucoperiosteal thickening of the left maxillary and bilateral ethmoid air cells. PROCEDURE INFORMATION: Exam: CT Maxillofacial Without Contrast Exam date and time: 05/17/2024 7:23 PM Age: 73 years old Clinical indication: Other: Fall and left side pain TECHNIQUE: Imaging protocol: Computed tomography of the face without contrast. COMPARISON: CT HEAD WO 04/26/2024 4:18 PM FINDINGS: Paranasal sinuses: There is mild mucoperiosteal thickening of the left maxillary sinus. There is mild mucoperiosteal thickening of the right and left ethmoid air cells. The remaining paranasal sinuses are clear. Nasal cavity: There is mild nasal septal deviation to the right. No fracture identified. There are bilateral oleksandr bullosa of the middle turbinates. Orbital cavities: The bony orbits are intact. The globes and retro-orbital soft tissues are normal Bones: The mandible is intact. There is no dislocation of the temporomandibular joints. The maxilla is intact. The zygomatic arches are intact. Soft tissues: No soft tissue hematomas over the facial bones identified. No foreign bodies or soft tissue gas. IMPRESSION: 1. No facial bone fracture identified. 2. No soft tissue hematoma, soft tissue gas or foreign body identified. 3. Nasal septal deviation to the right but no nasal bone fracture identified. Dictated and Authenticated by: Joshua Sandoval MD. Orderin Bernard Haynes MD
== END 2024-05-17 21:08 | disposition skilled nursing facility (03) ==
PROVIDERS: Emergency Provider Emergency Medicine Emergency Medical Services; PCP Nurse Practitioner Family
DX: S00.83XA Contusion of other part of head, initial encounter (principal); R53.1 Weakness; S70.01XA Contusion of right hip, initial encounter; G20.C Parkinsonism, unspecified; W19.XXXA Unspecified fall, initial encounter
CPT/HCPCS: 36415; 36416; 80053; 82550; 82962; 87637; 93005; 96374; 99285; 70450; 70486; 73502; 81003; 81015; 85025; 93010; J2270

== ENCOUNTER 2024-07-16 14:59 | Outpatient (REF) | payer MEDICARE, SELFPAY ==
[2024-07-16 15:29] LABS: Bilirubin Negative (Negative); Blood Negative (Negative); Clarity Clear (Clear); Glucose Negative (Negative); Ketones Negative (Negative); Leukocyte Esterase Negative (Negative); Nitrite Negative (Negative); Specific Gravity 1.025 (1.005-1.025); Urobilinogen 0.2 mg/dL (Up to 0.2)
[2024-07-18 09:44] LABS: PSA, Diagnostic 0.6 ng/mL (<=6.5)
== END 2024-07-16 15:00 | disposition home or self-care (01) ==
LOC: NCHCN 14:59
PROVIDERS: PCP Nurse Practitioner Family; Visit Provider Nurse Practitioner Family
DX: N40.0 Benign prostatic hyperplasia without lower urinary tract symptoms (principal)
CPT/HCPCS: 81003; 84153